=== PATIENT | female | born 2000 | race African-American/Black ===

== ENCOUNTER 2024-02-12 17:09 | Emergency (ER) | payer SELFPAY ==
[2024-02-12] MEDS ORDERED: Acetaminophen 500 MG TAB ONE (17:41)
== END 2024-02-12 18:56 | disposition home or self-care (01) ==
LOC: CSHERS 17:09
DX: J10.1 Influenza due to other identified influenza virus with other respiratory manifestations (principal)
CPT/HCPCS: 87428; 99283